=== PATIENT | male | born 1960 | race Caucasian/White ===

== ENCOUNTER 2019-03-09 09:43 | Day surgery (SDC) | payer OTHER ==
[~2019-03-09] VITALS: Ht 185.4 cm; Wt 163.6 kg
[~2019-03-09 09:43] MED LIST: ALBU90OI INH; CHLO25B PO; Cymbalta30 MG PO; DOCU100 PO; GLIP10 PO; INSULANPEN SC; Keppra1000 MG PO; Lyrica225 MG PO; METF500 PO; METO25 PO; MIRALAX17 GM PO; OXYC5 PO; Prinivil10 MG PO
--- NOTE | 2019-03-09 10:47 | NUR ---
PATIENT WAS ADMITTED TO DAY SURGERY FOR HIS PROCEDURE. THE PATIENT STATED THAT HE WAS NPO SINCE 1999 ON 03/08
--- NOTE | 2019-03-09 14:45 | NUR ---
ABD BINDER IN PLACE, DID MINOR ADJUSTMENT TO ABD BINDER ONCE PT STOOD UP TO GET DRESSED. DRG C/D/I. PT DRESSED AND READY TO BE DISCHARGED. Discharge instructions reviewed with patient. Patient verbalizes understanding. Copy given to patient to take home. PARENTS AT BEDSIDE TO DISCUSS DISCHARGE WELL. PT TOLERATED CRACKERS AND JUICE AND WATER WELL, TOOK NORCO ORDERED. RX GIVEN TO PATIENT. Discharged via wheelchair to private car for ride home.
--- NOTE | 2019-03-12 14:02 | NUR ---
03/12/19 1402 Thais Steele VERIFICATIONS: EDIT CHART.
[2019-04-04] MEDS ORDERED: Keflex500 MG PO (21:36)
== END 2019-03-09 14:48 | disposition home or self-care (01) ==
LOC: ORSCMMR 09:43 → ORD 11:15 → ORSCMMR 11:15
PROVIDERS: Surgery
PROC: 0WUF0JZ Supplement Abdominal Wall with Synthetic Substitute, Open Approach (ICD-10-PCS; principal; 2019-03-09 12:15)
DX: K42.9 Umbilical hernia without obstruction or gangrene (principal); I10 Essential (primary) hypertension; E11.9 Type 2 diabetes mellitus without complications; G47.33 Obstructive sleep apnea (adult) (pediatric); J44.9 Chronic obstructive pulmonary disease, unspecified; Z87.891 Personal history of nicotine dependence; E66.01 Morbid (severe) obesity due to excess calories; Z68.42 Body mass index [BMI] 45.0-49.9, adult; Z79.899 Other long term (current) drug therapy
CPT/HCPCS: A9270-GY; C1781; J0690; J1885; J2250; J2405; J2704; J2765; J3010; J7120

== ENCOUNTER 2019-08-10 21:13 | Emergency (ER) | payer OTHER ==
[~2019-08-10] VITALS: Ht 185.4 cm; Wt 163.3 kg
[~2019-08-10 21:13] MED LIST changes: +Keflex500 MG PO
[2019-08-10 22:12] LABS: BASOPHILS ABSOLUTE AUTO 0.06 K/mm3 (0.00-0.23); BASOPHILS PERCENT AUTO 1 % (0-2); EOSINOPHILS ABSOLUTE AUTO 0.24 K/mm3 (0.00-0.68); EOSINOPHILS PERCENT AUTO 2 % (0-6); Hematocrit 42.9 % (37.0-53.0); Hemoglobin 13.6 g/dL (13.5-17.5); IMMATURE GRAN ABSOLUTE AUTO 0.28 K/mm3 (0.00-0.10); IMMATURE GRAN PERCENT AUTO 2 % (0-1); LYMPHOCYTES ABSOLUTE AUTO 3.41 K/mm3 (0.84-5.20); LYMPHOCYTES PERCENT AUTO 27 % (21-46); MONOCYTES ABSOLUTE AUTO 0.68 K/mm3 (0.16-1.47); MONOCYTES PERCENT AUTO 5 % (4-13); Mean Corpuscular HGB 27.3 pg (26.0-34.0); Mean Corpuscular HGB Conc 31.7 g/dL (31.5-36.5); Mean Corpuscular Volume 86 fL (80-100); NEUTROPHILS ABSOLUTE AUTO 8.02 K/mm3 (1.96-9.15); NEUTROPHILS PERCENT AUTO 63 % (41-73); Platelet Count 274 K/mm3 (150-400); RDW Coefficient Variation 13.5 % (11.7-14.2); RDW Standard Deviation 42.4 fL (35.1-46.3); Red Blood Cell Count 4.98 M/mm3 (4.30-5.90); White Blood Cell Count 12.69 K/mm3 (4.00-11.30)
[2019-08-10 22:30] LABS: Alanine Aminotransfer (ALT/SGP 31 U/L (12-78); Albumin, Blood 3.6 g/dL (3.4-5.0); Albumin/Globulin Ratio 0.9 (0.8-1.8); Alk Phos 75 U/L (50-136); Anion Gap 11 mmol/L (6-16); Aspartate Aminotrans (AST/SGOT 21 U/L (12-37); Bilirubin, Total 0.2 mg/dL (0.1-1.0); Blood Urea Nitrogen 17 mg/dL (8-24); Bun/Creatinine Ratio 29.8 (12.0-20.0); CO2, Blood 29 mmol/L (21-32); Calcium, Blood 9.3 mg/dL (8.5-10.1); Chloride, Blood 99 mmol/L (98-108); Creatinine, Blood 0.57 mg/dL (0.60-1.20); Globulin, Blood 4.2 g/dL (2.2-4.0); Glomerular Filtration Rate >60 (60-); Glucose, Blood 239 mg/dL (70-99); Potassium, Blood 3.4 mmol/L (3.5-5.5); Sodium, Blood 139 mmol/L (136-145); Total Protein, Blood 7.8 g/dL (6.4-8.2); Troponin I <0.015 ng/mL (0.000-0.040)
== END 2019-08-11 01:03 | disposition home or self-care (01) ==
LOC: ER 21:13
PROVIDERS: Physician Assistant
DX: R53.1 Weakness (principal); R07.2 Precordial pain; Z88.8 Allergy status to other drugs, medicaments and biological substances; Z88.1 Allergy status to other antibiotic agents; Z79.899 Other long term (current) drug therapy; Z79.4 Long term (current) use of insulin; I10 Essential (primary) hypertension; E11.9 Type 2 diabetes mellitus without complications; Z87.891 Personal history of nicotine dependence
CPT/HCPCS: 71046; 80053; 83880; 84484; 85025; 85379; 93005; 93010; 96360; 96361; 99284-25; J7030

== ENCOUNTER 2020-01-28 12:10 | Emergency (ER) | payer OTHER ==
[~2020-01-28] VITALS: Ht 172.7 cm; Wt 167.8 kg
[~2020-01-28 12:10] MED LIST changes: +BASAGLAR K100 UNIT/1 SC; -INSULANPEN SC; -Keppra1000 MG PO; +LEVE500 PO
[2020-01-28] MEDS ORDERED: BACITO TOP (12:42)
[2020-01-28] MEDS ORDERED: BUDE.25 INH (12:43)
[2020-01-28] MEDS ORDERED: KETO15TC TOP (12:44)
[2020-01-28] MEDS ORDERED: TOBRADEX ST EYE5 M1 OP (12:44)
[2020-01-28] MEDS ORDERED: LEVE500 (12:45)
[2020-01-28 14:57] LABS: BASOPHILS ABSOLUTE AUTO 0.07 K/mm3 (0.00-0.23); BASOPHILS PERCENT AUTO 1 % (0-2); EOSINOPHILS ABSOLUTE AUTO 0.34 K/mm3 (0.00-0.68); EOSINOPHILS PERCENT AUTO 4 % (0-6); Hemoglobin 12.4 g/dL (13.5-17.5); IMMATURE GRAN ABSOLUTE AUTO 0.29 K/mm3 (0.00-0.10); IMMATURE GRAN PERCENT AUTO 3 % (0-1); LYMPHOCYTES ABSOLUTE AUTO 2.66 K/mm3 (0.84-5.20); LYMPHOCYTES PERCENT AUTO 29 % (21-46); MONOCYTES ABSOLUTE AUTO 0.45 K/mm3 (0.16-1.47); MONOCYTES PERCENT AUTO 5 % (4-13); Mean Corpuscular HGB 26.8 pg (26.0-34.0); Mean Corpuscular HGB Conc 30.2 g/dL (31.5-36.5); Mean Corpuscular Volume 89 fL (80-100); Mean Platelet Volume 10.6 fL (9.1-12.4); NEUTROPHILS ABSOLUTE AUTO 5.45 K/mm3 (1.96-9.15); NEUTROPHILS PERCENT AUTO 59 % (41-73); Platelet Count 256 K/mm3 (150-400); RDW Coefficient Variation 13.9 % (11.7-14.2); Red Blood Cell Count 4.63 M/mm3 (4.30-5.90); White Blood Cell Count 9.26 K/mm3 (4.00-11.30)
[2020-01-28 15:09] LABS: Alanine Aminotransfer (ALT/SGP 33 U/L (12-78); Albumin, Blood 3.4 g/dL (3.4-5.0); Albumin/Globulin Ratio 0.9 (0.8-1.8); Alk Phos 67 U/L (50-136); Anion Gap 5 mmol/L (6-16); Aspartate Aminotrans (AST/SGOT 19 U/L (12-37); Bilirubin, Total 0.2 mg/dL (0.1-1.0); Blood Urea Nitrogen 18 mg/dL (8-24); Bun/Creatinine Ratio 35.9 (12.0-20.0); CO2, Blood 31 mmol/L (21-32); Calcium, Blood 8.9 mg/dL (8.5-10.1); Chloride, Blood 100 mmol/L (98-108); Globulin, Blood 3.7 g/dL (2.2-4.0); Glomerular Filtration Rate >60 (60-); Glucose, Blood 402 mg/dL (70-99); Potassium, Blood 3.5 mmol/L (3.5-5.5); Sodium, Blood 136 mmol/L (136-145); Total Protein, Blood 7.1 g/dL (6.4-8.2); Troponin I <0.015 ng/mL (0.000-0.040)
[2020-01-28 15:50] LABS: Base Excess Venous 6.9 mmol/L; Bicarbonate Venous 28.8 mmol/L (24.0-30.0); PCO2 Venous 60.9 mmHg (38-42); PO2 Venous 52.1 mmHg (38-42); pH Blood Venous 7.34 (7.34-7.37)
[2020-01-28] MEDS ORDERED: Prednisone20 MG PO (17:51)
== END 2020-01-28 18:00 | disposition home or self-care (01) ==
LOC: ER 12:10
PROVIDERS: Emergency Medicine
DX: R06.89 Other abnormalities of breathing (principal); R51 Headache; M54.2 Cervicalgia; E11.65 Type 2 diabetes mellitus with hyperglycemia; Z88.8 Allergy status to other drugs, medicaments and biological substances; Z88.1 Allergy status to other antibiotic agents; Z79.899 Other long term (current) drug therapy; Z79.4 Long term (current) use of insulin; I10 Essential (primary) hypertension; Z87.891 Personal history of nicotine dependence
CPT/HCPCS: 70496; 70498; 71045; 80053; 82010; 82803; 82947; 83880; 84484; 85025; 93005; 93010; 94640; 96360-59; 99284-25; J7030; J7512; Q9967

== ENCOUNTER 2020-02-10 18:14 | Inpatient (IN) | payer OTHER ==
[~2020-02-10] VITALS: Ht 185.4 cm; Wt 166.4 kg
[~2020-02-10 18:14] MED LIST changes: +BACITO TOP; +BUDE.25 INH; +KETO15TC TOP; +LEVE500; +Prednisone20 MG PO; +TOBRADEX ST EYE5 M1 OP
[2020-02-10 18:28] LABS: PCO2 Arterial 42.4 mmHg (35-45); PO2 Arterial 50.9 mmHg (80-100); pH Blood Arterial 7.45 (7.35-7.45)
[2020-02-10 18:39] LABS: BASOPHILS ABSOLUTE AUTO 0.07 K/mm3 (0.00-0.23); BASOPHILS PERCENT AUTO 0 % (0-2); EOSINOPHILS ABSOLUTE AUTO 0.19 K/mm3 (0.00-0.68); EOSINOPHILS PERCENT AUTO 1 % (0-6); Hematocrit 45.9 % (37.0-53.0); Hemoglobin 14.3 g/dL (13.5-17.5); IMMATURE GRAN ABSOLUTE AUTO 0.36 K/mm3 (0.00-0.10); IMMATURE GRAN PERCENT AUTO 2 % (0-1); LYMPHOCYTES ABSOLUTE AUTO 1.81 K/mm3 (0.84-5.20); LYMPHOCYTES PERCENT AUTO 8 % (21-46); MONOCYTES ABSOLUTE AUTO 0.75 K/mm3 (0.16-1.47); MONOCYTES PERCENT AUTO 3 % (4-13); Mean Corpuscular HGB 26.9 pg (26.0-34.0); Mean Corpuscular HGB Conc 31.2 g/dL (31.5-36.5); Mean Corpuscular Volume 86 fL (80-100); Mean Platelet Volume 10.1 fL (9.1-12.4); NEUTROPHILS ABSOLUTE AUTO 18.56 K/mm3 (1.96-9.15); NEUTROPHILS PERCENT AUTO 85 % (41-73); Platelet Count 271 K/mm3 (150-400); RDW Coefficient Variation 14.1 % (11.7-14.2); RDW Standard Deviation 44.5 fL (35.1-46.3); Red Blood Cell Count 5.32 M/mm3 (4.30-5.90); White Blood Cell Count 21.74 K/mm3 (4.00-11.30)
[2020-02-10 18:57] LABS: Alanine Aminotransfer (ALT/SGP 40 U/L (12-78); Albumin, Blood 3.9 g/dL (3.4-5.0); Albumin/Globulin Ratio 0.8 (0.8-1.8); Alk Phos 82 U/L (50-136); Anion Gap 9 mmol/L (6-16); Aspartate Aminotrans (AST/SGOT 22 U/L (12-37); Bilirubin, Total 0.5 mg/dL (0.1-1.0); Blood Urea Nitrogen 15 mg/dL (8-24); Bun/Creatinine Ratio 23.3 (12.0-20.0); CO2, Blood 30 mmol/L (21-32); Calcium, Blood 9.6 mg/dL (8.5-10.1); Chloride, Blood 95 mmol/L (98-108); Creatinine, Blood 0.65 mg/dL (0.60-1.20); Globulin, Blood 4.7 g/dL (2.2-4.0); Glomerular Filtration Rate >60 (60-); Glucose, Blood 191 mg/dL (70-99); Potassium, Blood 3.7 mmol/L (3.5-5.5); Sodium, Blood 134 mmol/L (136-145); Total Protein, Blood 8.6 g/dL (6.4-8.2)
[2020-02-10] MEDS ORDERED: NOVOLOG100 UNIT/2 SC (21:59)
--- NOTE | 2020-02-10 22:00 | NUR ---
REPORT FROM SAMSON HERRERA IN ER. PT ARRIVES TO ICU ROOM 11 AT 2136. PT ALERT AND ORIENTED. PT MOVED TO ICU BED WITH THE ASSISTANCE OF 4 PEOPLE. RESP AT BEDSIDE TO SET UP AIRVO O2. PT PLACED ON COMPUTER SYSTEMS ADMINISTRATOR, SHOWING ST RATE 110'S. BP STABLE. PT HAS 20G TO LEFT FA AND 20G TO LEFT UPPER ARM. BOTH DRESSINGS CHANGED. SITES WNL. PT HAS PATENT TEMP FAIRCHILD DRAINING YELLOW URINE, TEMP 101.6. PT DENIES PAIN. C/O SOB STILL. PT TACHYPNEAIC AND ANXIOUS. PT ANWERS ADMIT QUESTIONS EASILY. SKIN INTACT BUT CLAMMY AND MOIST DUE TO DIAPHORESIS. PULSES PRESENT AND EQUAL X4. PUPILS 4MM AND BRISK. INITIAL AIRVO SETTINGS 60L @ 50% FI02. SATS >92%. PT TOLERATING CANNULA WITH SOME ANXIETY. PT C/O CRAMPS TO LEGS R>L. SEND OUT COVID SWAB COLLECTED AT THIS TIME. PT ORIENTED TO ROOM, CALL LIGHT IN REACH. SEE FULL ASSESSMENT
[2020-02-11 04:03] LABS: BASOPHILS ABSOLUTE AUTO 0.05 K/mm3 (0.00-0.23); BASOPHILS PERCENT AUTO 0 % (0-2); EOSINOPHILS ABSOLUTE AUTO 0.01 K/mm3 (0.00-0.68); EOSINOPHILS PERCENT AUTO 0 % (0-6); Hematocrit 41.6 % (37.0-53.0); IMMATURE GRAN PERCENT AUTO 2 % (0-1); LYMPHOCYTES ABSOLUTE AUTO 0.41 K/mm3 (0.84-5.20); LYMPHOCYTES PERCENT AUTO 2 % (21-46); MONOCYTES ABSOLUTE AUTO 0.25 K/mm3 (0.16-1.47); MONOCYTES PERCENT AUTO 1 % (4-13); Mean Corpuscular HGB Conc 31.3 g/dL (31.5-36.5); Mean Corpuscular Volume 87 fL (80-100); Mean Platelet Volume 9.9 fL (9.1-12.4); NEUTROPHILS ABSOLUTE AUTO 20.93 K/mm3 (1.96-9.15); NEUTROPHILS PERCENT AUTO 95 % (41-73); Platelet Count 247 K/mm3 (150-400); RDW Coefficient Variation 14.3 % (11.7-14.2); RDW Standard Deviation 45.5 fL (35.1-46.3); Red Blood Cell Count 4.81 M/mm3 (4.30-5.90); White Blood Cell Count 22.15 K/mm3 (4.00-11.30)
[2020-02-11 04:20] LABS: Anion Gap 6 mmol/L (6-16); Blood Urea Nitrogen 16 mg/dL (8-24); Bun/Creatinine Ratio 22.5 (12.0-20.0); CO2, Blood 29 mmol/L (21-32); Calcium, Blood 8.7 mg/dL (8.5-10.1); Chloride, Blood 100 mmol/L (98-108); Creatinine, Blood 0.71 mg/dL (0.60-1.20); Glomerular Filtration Rate >60 (60-); Glucose, Blood 279 mg/dL (70-99); Potassium, Blood 4.1 mmol/L (3.5-5.5); Sodium, Blood 135 mmol/L (136-145)
--- NOTE | 2020-02-11 06:31 | NUR ---
SHIFT SUMMARY PT REMAINS ALERT AND ORIENTED THROUGH OUT SHIFT. PT SATS >90% ON AIRVO 50L/50%. TOLERATING CANNULA WELL. PT HAS 2OG TO LEFT UPPER ARM, DRESSING C/D/I, ALSO HAS 20G TO LEFT FA, DRESSING C/D/I. PT REQUIRED DOSE OF IV METOPROLOL FOR HYPERTENSION, BP STABLE SINCE. HR LOW 100'S, ST. PT FEBRILE OFF/ON, NEEDED TYLENOL FOR TEMP OF 102. PT HAS TEMP FAIRCHILD DRAINING YELLOW URINE. PULSES EQUAL AND STRONG X4. PT TOLERATES PO. CBG HIGH, COVERAGE NEEDED FOR BLOOD SUGAR >200S. NEEDS HOME MEDS READDRESSED, ORDERED DOSE DO NOT MATCH HOME DOSE. PT USES CALL LIGHT APPROPRIATELY. LUNG SOUNDS COARSE AND DIMINISHED. BS ACTIVE. PT REPORTS NO BM SINCE 02/07. NO CHANGES IN SKIN. WILL REPORT TO ONCOMING SHIFT.
--- NOTE | 2020-02-11 08:17 | NUR ---
ASSUMED CARE: REPORT RECEIVED FROM LORENA Jamil RN & JORGE Yancey RN. ASSUMED CARE OF THIS PT AT APPROX 0700. ON ASSESSMENT, THE PT IS RESTING QUIETLY & AWAKENS EASILY TO VERBAL STIMULUS. HE IS A&O, PLEASANT & COOPERATIVE W/ CARE. CURRENTLY AFEBRILE W/ TEMP FAIRCHILD READING 99.0. PT STS HAVING GENERALIZED CHRONIC "ACHES & PAINS" THAT ARE IMPROVED W/ REPOSITIONING. AIRVO IN USE W/ SETTINGS: 50L/MIN & 50% FIO2, PT TOLERATING WELL W/ O2 SATS > 92%. MONITOR SHOWS ST W/ HR 100s, BP STABLE. PT DENIES CP, BUT CONTINUES TO FEEL SOB, ALTHOUGH STS IMPROVED. PT HAS NO GI COMPLAINTS & IS TOLERATING PO INTAKE WELL. TEMP FAIRCHILD PATENT/ DRAINING LIGHT YELLOW URINE. SKIN CONDITION OVERALL INTACT, BUT PT REMAINS SOMEWHAT DIAPHORETIC. WILL CONTINUE TO MONITOR & UPDATE NEEDED.
[2020-02-11 10:01] LABS: PCO2 Arterial 46.2 mmHg (35-45); PO2 Arterial 66.3 mmHg (80-100); pH Blood Arterial 7.41 (7.35-7.45)
--- NOTE | 2020-02-11 12:30 | NUR ---
DR HASSAN: PROVIDER AT BEDSIDE TO EVAL PT. THE CIRCUMSTANCES SURROUNDING SECOND COVID-19 SWAB BEING COMPLETED, UPDATED HER ON THE REASONING FOR THIS. PT HAS HAD C/O CHRONIC GENERALIZED ACHING, REQUEST FOR HIS HOME PAIN MEDS TO BE RESUMED. SHE STS SHE WILL LOOK INTO IT. [facility], HAS INQUIRED ABOUT POSSIBLE NEED FOR GI PROPHYLAXIS R/T IV STEROIDS THAT PT IS RECEIVING. PROVIDER STS THAT SHE WILL ALSO LOOK INTO THIS. NO OTHER CHANGES AT THIS TIME.
--- NOTE | 2020-02-11 17:17 | NUR ---
Per admit trigger, I attempted to meet with Mr. Howell to educate/discuss advanced care planning. Unfortunately, he is a Covid rule-out and I am unable to enter room. Advanced Directive packet given to RN to present to Yomi. I will remain available, and if Yomi comes out of Covid isolation, I will attempt this conversation again.
--- NOTE | 2020-02-11 18:10 | NUR ---
SHIFT SUMMARY: NO ACUTE CHANGES SINCE PRIOR UPDATES. PT REMAINS A&O, PLEASANT & COOPERATIVE. HE HAS RESTED WELL THIS AFTERNOON, STS HE HAS BEEN SLEEPING POORLY AT HOME FOR QUITE SOME TIME. LS REMAIN DIM T/O, PT ON AIRVO W/ SETTINGS UNCHANGED AT 50 L/MIN & 50% FIO2. TOLERATING WELL W/ O2 SATS > 92%. MONITOR SHOWS SR W/ HR 80-90s, BP STABLE. PT HAS NO GI COMPLAINTS & IS TOLERATING PO INTAKE WELL. TEMP FAIRCHILD PATENT/ DRAINING W/ TMAX 100.0 THIS SHIFT, MEDS PER EMAR. SKIN CONDITION OVERALL UNCHANGED, CDI. WILL CONTINUE TO MONITOR & REPORT OFF TO ONCOMING RN.
--- NOTE | 2020-02-11 20:55 | NUR ---
ASSUMED PT CARE REPORT WITH GILBERTO HERRERA AT 1900. ASSUME PT CARE. PT SITTING UP IN BED, CALL LIGHT IN REACH, ALERT AND ORIENTED. PT ON ARIVO 50L/50% TOLERATING CANNULA WELL, SATS >92%. LUNG SOUNDS CLEAR TO UPPER BOJORQUEZ, DIMINISHED TO LOWER. PT REMAINS ON METAL SPRAY OPERATOR, HR 80'S, NSR. BP STABLE. ABD DISTENDED, BS ACTIVE. PT REPORTS PASSING GAS. PT MOVE ALL 4 EXT. C/O CHRONIC JOINT AND BACK PAIN. IV TO LEFT UPPER ARM AND LEFT FA REMAIN INTACT. DRESSING C/D, BOTH FLUSH WELL. COFFEE AND ICE WATER PROVIDED. PT SITTING UP FOR MEDS, TOLERATES PO WITHOUT ISSUE. PATENT TEMP FAIRCHILD DRAINING CLEAR YELLOW URINE. PT AFEBRILE TODAY PER REPORT. SEE FULL SHIFT ASSESSMENT.
[2020-02-11] MEDS ORDERED: BUDE.25 INH (21:18)
[2020-02-11] MEDS ORDERED: NEOBACHC15 TOP (21:18)
[2020-02-11] MEDS ORDERED: Tobramycin-Dexam5 ML BOTHEARS (21:21)
[2020-02-11] MEDS ORDERED: JARDIANCE25 MG PO (21:22)
[2020-02-11] MEDS ORDERED: Fluocinonide15 GM TOP (21:24)
[2020-02-11] MEDS ORDERED: HYDACE10B PO (21:25)
[2020-02-11] MEDS ORDERED: NOVOLOG FL100 UNIT/2 SC (21:27)
[2020-02-11] MEDS ORDERED: NOVOLOG100 UNIT/2 SC (21:29)
[2020-02-11] MEDS ORDERED: LACT PO (21:31)
[2020-02-12 03:45] LABS: BASOPHILS ABSOLUTE AUTO 0.03 K/mm3 (0.00-0.23); BASOPHILS PERCENT AUTO 0 % (0-2); EOSINOPHILS PERCENT AUTO 0 % (0-6); Hemoglobin 12.3 g/dL (13.5-17.5); IMMATURE GRAN ABSOLUTE AUTO 0.46 K/mm3 (0.00-0.10); IMMATURE GRAN PERCENT AUTO 3 % (0-1); LYMPHOCYTES ABSOLUTE AUTO 0.92 K/mm3 (0.84-5.20); LYMPHOCYTES PERCENT AUTO 6 % (21-46); MONOCYTES ABSOLUTE AUTO 0.49 K/mm3 (0.16-1.47); MONOCYTES PERCENT AUTO 3 % (4-13); Mean Corpuscular HGB Conc 30.8 g/dL (31.5-36.5); Mean Corpuscular Volume 88 fL (80-100); Mean Platelet Volume 9.9 fL (9.1-12.4); NEUTROPHILS ABSOLUTE AUTO 13.87 K/mm3 (1.96-9.15); NEUTROPHILS PERCENT AUTO 88 % (41-73); Platelet Count 231 K/mm3 (150-400); RDW Coefficient Variation 14.3 % (11.7-14.2); RDW Standard Deviation 45.9 fL (35.1-46.3); Red Blood Cell Count 4.55 M/mm3 (4.30-5.90); White Blood Cell Count 15.77 K/mm3 (4.00-11.30)
[2020-02-12 04:06] LABS: Albumin, Blood 2.8 g/dL (3.4-5.0); Anion Gap 7 mmol/L (6-16); Blood Urea Nitrogen 19 mg/dL (8-24); CO2, Blood 26 mmol/L (21-32); Calcium, Blood 8.3 mg/dL (8.5-10.1); Chloride, Blood 99 mmol/L (98-108); Creatinine, Blood 0.58 mg/dL (0.60-1.20); Glomerular Filtration Rate >60 (60-); Glucose, Blood 290 mg/dL (70-99); Potassium, Blood 4.1 mmol/L (3.5-5.5); Sodium, Blood 132 mmol/L (136-145)
--- NOTE | 2020-02-12 06:34 | NUR ---
SHIFT SUMMARY PT HAD GOOD SHIFT. ALERT AND ORIENTED. UP ALL NIGHT, PT STATES "I USUALLY AM UP ALL NIGHT, I EAT ALOT OF SNACKS." PT C/O PAIN TO BACK AND TO LEGS. NEEDED PAIN MEDICATION TWICE DURING SHIFT (MEDICATED WITH PERCOCET). PT TOLERATING AIRVO, TOLERATED TITRATION. SATS >90%, SETTINGS 30L/30%. BP WNL, HR 80'S NSR. PATENT TEMP FAIRCHILD DRAINING CLEAR YELLOW URINE. ABD SOFT, NON TENDER, GOOD BOWEL SOUNDS, ARCADIO PO. LUNG SOUNDS CLEAR UPPER AND DIMINISHED TO BASES. IV TO LEFT UPPER ARM INFILTRATED, DRESSING PLACED. PT DECLINED NEW IV. WILL SEE IF POWER GLIDE CAN BE STARTED. PT MOVES ALL EXT. WOULD BENEFIT FROM PT EVAL/CONSULT. WILL REPORT TO ON COMING
--- NOTE | 2020-02-12 07:30 | NUR ---
Received report from Tate HERRERA. Patient awake sitting up in bed and is aleert at baseline. RT just came out and removed AirVO 30 L at 30% and made 4 L Via NC and sats 94%. He MAEW. He has 16F Temp chao in place draining to gravity yellow urine and temp of 98.6. Patient denies anyn other current needs other than water and coffee. He has 20ga IV in LFA dressing intact and site WNL's and is infusing sodium Phos at 125ml/hr. He is on isolation for r/o Covid 19.
--- NOTE | 2020-02-12 09:30 | NUR ---
Patient tolertaed breakfast and am meds well. He was up out of bed and ambulated to bathroom with minimal assist. He remians on 4L O2 via NC and sats 94-96 even with ambulation. He remains up to bathroom.
--- NOTE | 2020-02-12 12:24 | NUR ---
Dr Gage in room with patient. He was able to ambulate back to bed with minimal assist and reposituioned self back in bed. His sats never decreased less than 90%n during transfer. He tolerated lunch well. CBG 344 and covered with 12 units humalog. Sodium Phos done and site flushed and SL'd. No significant changes, remains on 4 L O2 via NC and sats >90%.
--- NOTE | 2020-02-12 15:09 | NUR ---
Patient remains on 4L O2 via NC and sats >90% and puffs and pers lip breathing with exertion. He was upm out of bed so that we could change linen and straighten room. He remains SL'd. Patient put out another 1900 yellow urine.
--- NOTE | 2020-02-12 18:39 | NUR ---
Patient continues to puff and purse lip breathing and states he is hot but feel cool in room. His temp 98.8 from temp chao that has 3800ml, yellow urine output.. He remains on 4L O2 via NC and sats >95%. JHlisa is currently trying to rest He states that sudefed worked a little and wants second dose when available. No other current needs.
--- NOTE | 2020-02-12 20:00 | NUR ---
ASSUMED PT CARE REPORT FROM RAVI RN AT 1905, ASSUMED PT CARE. PT ALERT AND ORIENTED. DENIES CP. C/O SOB MORE TODAY, PT NOW ON 4L O2 PER CANNULA. SATS >90%. TOLERATING WELL. PT REPORTS HAVING A GOOD DAY. 20G TO LEFT FA, DRESSING C/D/I. PT MOVES ALL 4 EXT FREELY. PT MED STATUS, REMOVED TELE (DUE TO DC ORDER). BP STABLE. PATENT FAIRCHILD DRAINING CLEAR YELLOW URINE. SEE FULL SHIFT ASSESSMENT.
[2020-02-13 04:00] LABS: BASOPHILS ABSOLUTE AUTO 0.03 K/mm3 (0.00-0.23); BASOPHILS PERCENT AUTO 0 % (0-2); EOSINOPHILS PERCENT AUTO 0 % (0-6); Hematocrit 40.7 % (37.0-53.0); Hemoglobin 12.6 g/dL (13.5-17.5); IMMATURE GRAN PERCENT AUTO 4 % (0-1); LYMPHOCYTES ABSOLUTE AUTO 0.97 K/mm3 (0.84-5.20); LYMPHOCYTES PERCENT AUTO 6 % (21-46); MONOCYTES PERCENT AUTO 4 % (4-13); Mean Corpuscular HGB 26.9 pg (26.0-34.0); Mean Corpuscular Volume 87 fL (80-100); NEUTROPHILS PERCENT AUTO 86 % (41-73); Platelet Count 235 K/mm3 (150-400); RDW Coefficient Variation 14.3 % (11.7-14.2); RDW Standard Deviation 45.5 fL (35.1-46.3); Red Blood Cell Count 4.69 M/mm3 (4.30-5.90)
[2020-02-13 04:20] LABS: Albumin, Blood 3.1 g/dL (3.4-5.0); Anion Gap 3 mmol/L (6-16); Blood Urea Nitrogen 21 mg/dL (8-24); Bun/Creatinine Ratio 33.1 (12.0-20.0); CO2, Blood 33 mmol/L (21-32); Calcium, Blood 8.8 mg/dL (8.5-10.1); Chloride, Blood 98 mmol/L (98-108); Creatinine, Blood 0.63 mg/dL (0.60-1.20); Glomerular Filtration Rate >60 (60-); Glucose, Blood 298 mg/dL (70-99); Phosphorus, Blood 2.7 mg/dL (2.5-4.9); Potassium, Blood 4.2 mmol/L (3.5-5.5); Sodium, Blood 134 mmol/L (136-145)
--- NOTE | 2020-02-13 05:39 | NUR ---
SHIFT SUMMARY PT HAD GREAT EVENING. SLEPT MORE THAN PREVIOUS SHIFTS. REMAINED ALERT AND ORIENTED THROUGHOUT SHIFT. PT TOLERATED O2 AT 4L PER NC WITH NO DESATS SATS >92% ALL NIGHT. SOB AT TIMES. REPORTS NEB TREATMENTS REALLY HELPED TONIGHT. PT SKIN WNL. LUNG SOUNDS CLEAR TO UPPER LOBES AND DIMINISHED TO LOWER BASES. OCCASIONAL COUGH. PT ABD SOFT, NON TENDER, BM YEST DURING DAY SHIFT. PATENT FAIRCHILD DRAINING CLEAR YELLOW URINE. PT MOVES ALL 4 EXT INDEPENDENTLY. GOOD APPETITE. BP STABLE. REQUIRED ONE DOSE OF PEROCET AND MOTRIN FOR C/O PAIN. WILL REPORT TO ONCOMING SHIFT.
[2020-02-13] MEDS ORDERED: DOCU100 PO (16:10)
[2020-02-13] MEDS ORDERED: LACT PO (16:14)
[2020-02-13] MEDS ORDERED: AZIT500 PO (16:57)
[2020-02-13] MEDS ORDERED: CEFU500T30 PO (16:59)
[2020-02-13] MEDS ORDERED: GUAI600T33 PO (17:00)
[2020-02-13] MEDS ORDERED: IPRAT-ALBUT 0.5-3 ML INH (17:04)
[2020-02-13] MEDS ORDERED: Prednisone10 MG PO (17:08)
[2020-02-13] MEDS ORDERED: HUMALOG KW100 UNIT/1 (17:40)
--- NOTE | 2020-02-13 18:42 | NUR ---
PT DISCHARGED FROM ICU AT 183. PT LEFT ON 2 L NC, 93% SPO2. NO MAJOR EVENTS TODAY, PT STATED FEELING OVERALL BETTER TODAY.
== END 2020-02-13 18:45 | disposition home or self-care (01) | DRG 871 ==
LOC: ER 18:14 → ICUW 20:30
PROVIDERS: Emergency Medicine; Internal Medicine; ADMIT Hospitalist
DX: A41.9 Sepsis, unspecified organism (principal); J18.9 Pneumonia, unspecified organism; J96.21 Acute and chronic respiratory failure with hypoxia; J44.1 Chronic obstructive pulmonary disease with (acute) exacerbation; J44.0 Chronic obstructive pulmonary disease with (acute) lower respiratory infection; E87.1 Hypo-osmolality and hyponatremia; G40.209 Localization-related (focal) (partial) symptomatic epilepsy and epileptic syndromes with complex partial seizures, not intractable, without status epilepticus; Z68.42 Body mass index [BMI] 45.0-49.9, adult; Z20.828 Contact with and (suspected) exposure to other viral communicable diseases; R65.20 Severe sepsis without septic shock; I10 Essential (primary) hypertension; E11.40 Type 2 diabetes mellitus with diabetic neuropathy, unspecified; E66.01 Morbid (severe) obesity due to excess calories; G47.33 Obstructive sleep apnea (adult) (pediatric); G89.4 Chronic pain syndrome; K59.00 Constipation, unspecified; Z91.14 Patient's other noncompliance with medication regimen; Z87.891 Personal history of nicotine dependence; Z79.4 Long term (current) use of insulin
CPT/HCPCS: 36415; 36600; 51702; 71045; 80048; 80053; 80069; 82803; 82947; 83036; 83605; 83880; 84145; 85025; 87040; 93005; 93010; 94640; 94644; 94761; 96365-59; 96368; 96375-59; 97161; 97165; 97530; 99285-25; A9270; A9270-GY; C9113; J0456; J0696; J1100; J1650; J1815; J2060; J2405; J2930; J7030; J7050; J7060; U0002; U0003

== ENCOUNTER 2020-04-04 17:54 | Emergency (ER) | payer OTHER ==
[~2020-04-04] VITALS: Ht 185.4 cm; Wt 170.1 kg
[~2020-04-04 17:54] MED LIST changes: +AZIT500 PO; +CEFU500T30 PO; +Fluocinonide15 GM TOP; +GUAI600T33 PO; +HUMALOG KW100 UNIT/1; +HYDACE10B PO; +IPRAT-ALBUT 0.5-3 ML INH; +JARDIANCE25 MG PO; +LACT PO; +NEOBACHC15 TOP; +NOVOLOG FL100 UNIT/2 SC; +NOVOLOG100 UNIT/2 SC; +Prednisone10 MG PO; +Tobramycin-Dexam5 ML BOTHEARS
[2020-04-04 18:23] LABS: BASOPHILS ABSOLUTE AUTO 0.06 K/mm3 (0.00-0.23); BASOPHILS PERCENT AUTO 1 % (0-2); EOSINOPHILS ABSOLUTE AUTO 0.08 K/mm3 (0.00-0.68); EOSINOPHILS PERCENT AUTO 1 % (0-6); Hematocrit 42.5 % (37.0-53.0); Hemoglobin 13.4 g/dL (13.5-17.5); IMMATURE GRAN PERCENT AUTO 3 % (0-1); LYMPHOCYTES ABSOLUTE AUTO 2.07 K/mm3 (0.84-5.20); LYMPHOCYTES PERCENT AUTO 17 % (21-46); MONOCYTES ABSOLUTE AUTO 0.45 K/mm3 (0.16-1.47); MONOCYTES PERCENT AUTO 4 % (4-13); Mean Corpuscular HGB 26.8 pg (26.0-34.0); Mean Corpuscular HGB Conc 31.5 g/dL (31.5-36.5); Mean Corpuscular Volume 85 fL (80-100); Mean Platelet Volume 9.6 fL (9.1-12.4); NEUTROPHILS ABSOLUTE AUTO 9.15 K/mm3 (1.96-9.15); NEUTROPHILS PERCENT AUTO 76 % (41-73); Platelet Count 269 K/mm3 (150-400); RDW Coefficient Variation 14.6 % (11.7-14.2); RDW Standard Deviation 45.1 fL (35.1-46.3); White Blood Cell Count 12.11 K/mm3 (4.00-11.30)
[2020-04-04 18:38] LABS: International Normalized Ratio 1.01; Prothrombin Time Results 10.8 Sec (9.7-11.5)
[2020-04-04 18:41] LABS: Alanine Aminotransfer (ALT/SGP 27 U/L (12-78); Albumin, Blood 3.6 g/dL (3.4-5.0); Albumin/Globulin Ratio 0.8 (0.8-1.8); Alk Phos 73 U/L (50-136); Anion Gap 9 mmol/L (6-16); Aspartate Aminotrans (AST/SGOT 15 U/L (12-37); Bilirubin, Total 0.4 mg/dL (0.1-1.0); Blood Urea Nitrogen 16 mg/dL (8-24); Bun/Creatinine Ratio 27.5 (12.0-20.0); CO2, Blood 29 mmol/L (21-32); Calcium, Blood 9.7 mg/dL (8.5-10.1); Chloride, Blood 101 mmol/L (98-108); Creatinine, Blood 0.58 mg/dL (0.60-1.20); Ethanol (Alcohol), Blood, Med <3 mg/dL; Globulin, Blood 4.6 g/dL (2.2-4.0); Glomerular Filtration Rate >60 (60-); Glucose, Blood 265 mg/dL (70-99); Potassium, Blood 3.6 mmol/L (3.5-5.5); Sodium, Blood 139 mmol/L (136-145); Total Protein, Blood 8.2 g/dL (6.4-8.2)
[2020-04-04 20:01] LABS: Source, Urine Voided
[2020-04-04 20:09] LABS: Bilirubin, Urine Neg (Neg); Blood, Urine Neg (Neg); Glucose Qualitative, Urine 2+ (Neg); Ketones, Urine 1+ (Neg); Leukocyte Esterase, Urine Neg (Neg); Nitrite, Urine Neg (Neg); Protein, Urine 3+ (Neg); Urobilinogen, Urine NORM (Normal); pH, Urine 6.5 (5.0-8.0)
[2020-04-04 20:10] LABS: Appearance, Urine Clear (Clear); Color, Urine Yellow (P-Yellow)
[2020-04-04 20:25] LABS: Bacteria Rare /hpf; Mucus Light (0-Heavy); Red Blood Cells, Urine 0-2 /hpf (0-2); Squamous Epithelial Cells Few /hpf (Few); White Blood Cells, Urine 0-2 /hpf (0-5)
[2020-04-04 20:29] LABS: U Amphetamine Screen Not Detected; U Barbituate Screen Not Detected; U Benzodiazapine Screen Not Detected; U Buprenorphine Screen Not Detected; U Cannabinoids Screen Not Detected; U Cocaine Screen Not Detected; U Methadone Screen Not Detected; U Methamphetamine Screen Not Detected; U Opiates Screen DETECTED; U Oxycodone Screen Not Detected; U Phencyclidine Screen Not Detected; U Propoxyphene Screen Not Detected
== END 2020-04-04 22:16 | disposition home or self-care (01) ==
LOC: ER 17:54
PROVIDERS: Emergency Medicine
DX: G40.909 Epilepsy, unspecified, not intractable, without status epilepticus (principal); I10 Essential (primary) hypertension; E11.9 Type 2 diabetes mellitus without complications; Z88.8 Allergy status to other drugs, medicaments and biological substances; Z79.4 Long term (current) use of insulin; Z79.51 Long term (current) use of inhaled steroids; Z79.899 Other long term (current) drug therapy; Z87.891 Personal history of nicotine dependence
CPT/HCPCS: 36415; 80053; 81001; 82947; 85025; 85610; 93005; 93010; 96374; 99285-25; G0480; J1953

== ENCOUNTER 2020-07-07 16:47 | Observation (INO) | payer OTHER ==
[~2020-07-07] VITALS: Ht 185.4 cm; Wt 162.4 kg
[~2020-07-07 16:47] MED LIST changes: -ALBU90OI INH; -Cymbalta30 MG PO; -HUMALOG KW100 UNIT/1; -LEVE500 PO; -Lyrica225 MG PO; -METF500 PO; -METO25 PO; -MIRALAX17 GM PO; -Prinivil10 MG PO
[2020-07-07 17:49] LABS: BASOPHILS ABSOLUTE AUTO 0.05 K/mm3 (0.00-0.23); BASOPHILS PERCENT AUTO 1 % (0-2); EOSINOPHILS ABSOLUTE AUTO 0.31 K/mm3 (0.00-0.68); EOSINOPHILS PERCENT AUTO 3 % (0-6); Hemoglobin 12.7 g/dL (13.5-17.5); IMMATURE GRAN ABSOLUTE AUTO 0.33 K/mm3 (0.00-0.10); IMMATURE GRAN PERCENT AUTO 4 % (0-1); LYMPHOCYTES ABSOLUTE AUTO 2.13 K/mm3 (0.84-5.20); LYMPHOCYTES PERCENT AUTO 22 % (21-46); MONOCYTES ABSOLUTE AUTO 0.58 K/mm3 (0.16-1.47); MONOCYTES PERCENT AUTO 6 % (4-13); Mean Corpuscular Volume 87 fL (80-100); Mean Platelet Volume 9.6 fL (9.1-12.4); NEUTROPHILS ABSOLUTE AUTO 6.11 K/mm3 (1.96-9.15); NEUTROPHILS PERCENT AUTO 64 % (41-73); Platelet Count 266 K/mm3 (150-400); RDW Coefficient Variation 14.9 % (11.7-14.2); RDW Standard Deviation 47.5 fL (35.1-46.3); White Blood Cell Count 9.51 K/mm3 (4.00-11.30)
[2020-07-07 18:10] LABS: Alanine Aminotransfer (ALT/SGP 38 U/L (12-78); Albumin, Blood 3.6 g/dL (3.4-5.0); Albumin/Globulin Ratio 0.9 (0.8-1.8); Alk Phos 74 U/L (50-136); Anion Gap 2 mmol/L (6-16); Aspartate Aminotrans (AST/SGOT 17 U/L (12-37); Bilirubin, Total 0.3 mg/dL (0.1-1.0); Blood Urea Nitrogen 11 mg/dL (8-24); Bun/Creatinine Ratio 19.8 (12.0-20.0); CO2, Blood 35 mmol/L (21-32); Calcium, Blood 9.4 mg/dL (8.5-10.1); Chloride, Blood 101 mmol/L (98-108); Creatinine, Blood 0.56 mg/dL (0.60-1.20); Glomerular Filtration Rate >60 (60-); Glucose, Blood 189 mg/dL (70-99); Potassium, Blood 3.5 mmol/L (3.5-5.5); Sodium, Blood 138 mmol/L (136-145); Total Protein, Blood 7.6 g/dL (6.4-8.2); Troponin I <0.015 ng/mL (0.000-0.040)
[2020-07-07 18:21] LABS: Source, Urine Voided
[2020-07-07 18:24] LABS: Appearance, Urine Clear (Clear); Bilirubin, Urine Neg (Neg); Blood, Urine Neg (Neg); Color, Urine Yellow (P-Yellow); Glucose Qualitative, Urine Neg (Neg); Ketones, Urine Neg (Neg); Leukocyte Esterase, Urine 1+ (Neg); Nitrite, Urine Neg (Neg); Protein, Urine 1+ (Neg); Urobilinogen, Urine 2+ (Normal)
[2020-07-07 18:34] LABS: Red Blood Cells, Urine 0-2 /hpf (0-2)
[2020-07-07 18:35] LABS: Squamous Epithelial Cells Rare /hpf (Few)
[2020-07-07 18:40] LABS: Oval Fat Bodies Rare /lpf
[2020-07-07 18:41] LABS: Bacteria Not Seen /hpf
[2020-07-07 19:20] LABS: Influenza A, PCR Negative (NEGATIVE); Influenza B, PCR Negative (NEGATIVE); Resp Syncytial Virus, PCR Negative (NEGATIVE); SARS-Cov-2 (COVID-19) PCR, MMC Negative (NEGATIVE)
[2020-07-07] MEDS ORDERED: SYMBICORT 80-10.2 GM (22:17)
[2020-07-07 22:33] LABS: Base Excess Venous 8.5 mmol/L; Bicarbonate Venous 30.9 mmol/L (24.0-30.0); PCO2 Venous 52.6 mmHg (38-42); PO2 Venous 96.6 mmHg (38-42); pH Blood Venous 7.41 (7.34-7.37)
--- NOTE | 2020-07-08 04:47 | NUR ---
SHIFT SUMMARY RECIEVED REPORT FROM AUREA HERRERA, ED @ 2114. ARRIVED TO MEDICAL FLOOR @ 2132 VIA WHEELCHAIR; MINIMAL ASSISTANCE NEEDED WITH TRANSFER. ORIENTED TO ROOM AND CALL SYSTEM; HOWEVER HAS NOT UTILIZED CALL LIGHT. A/O, ABLE TO MAKE NEEDS KNOWN. COOPERATIVE WITH CARE. ANSWERS QUESTIONS APPROPRIATELY. UP WITH 1P ASSIST TO BATHROOM; BECOMES DYSPENIC WITH EXERTION, SLIGHTLY UNSTEADY ON FEET WELL. BASELINE WEARS 3L VIA NC @ HS. TELE RUNNING SR @ 83 PER PCU SOUND ASSISTANT. APPEARED TO REST MUCH OF NIGHT SINCE ARRIVAL. STATES ITCHY AND DOES HAVE SLIGHT RASH TO TRUNK. NO OTHER ACUTE NEEDS OVERNIGHT. BED REMAINS IN LOWEST POSITION; ALARM ON. CALL LIGHT AND BELONGINGS WITHIN REACH. REPORT TO ALESHA HERRERA.
[2020-07-08 10:33] LABS: U Amphetamine Screen Not Detected; U Barbituate Screen Not Detected; U Benzodiazapine Screen Not Detected; U Buprenorphine Screen Not Detected; U Cannabinoids Screen Not Detected; U Cocaine Screen Not Detected; U Methadone Screen Not Detected; U Methamphetamine Screen Not Detected; U Opiates Screen Not Detected; U Oxycodone Screen Not Detected; U Phencyclidine Screen Not Detected; U Propoxyphene Screen Not Detected
--- NOTE | 2020-07-08 12:58 | NUR ---
DISCHARGE DISCHARGE INSTRUCTIONS, FOLLOW UP APPOINTMENT AND MEDICATION LIST REVIEWED WITH PT IN HIS ROOM AND WITH HIS MOTHER VIA TELEPHONE. QUESTONS/CONCERNS ANSWERED. BOTH VERBALLY INDICATED UNDERSTANDING OF ALL INSTRUCTIONS RECEIVED. TELE MONITOR REMOVED AND RETURNED TO PCU. ESCORTED OUT VIA W/C BY VOLUNTEER.
== END 2020-07-08 13:03 | disposition home or self-care (01) ==
LOC: ER 16:47 → MEDS 16:48
PROVIDERS: Emergency Medicine; ADMIT Internal Medicine
DX: G93.41 Metabolic encephalopathy (principal); I10 Essential (primary) hypertension; E11.42 Type 2 diabetes mellitus with diabetic polyneuropathy; R62.50 Unspecified lack of expected normal physiological development in childhood; E66.01 Morbid (severe) obesity due to excess calories; Z68.43 Body mass index [BMI] 50.0-59.9, adult; E11.40 Type 2 diabetes mellitus with diabetic neuropathy, unspecified; J44.9 Chronic obstructive pulmonary disease, unspecified; Z20.822 Contact with and (suspected) exposure to COVID-19; G47.33 Obstructive sleep apnea (adult) (pediatric); G40.209 Localization-related (focal) (partial) symptomatic epilepsy and epileptic syndromes with complex partial seizures, not intractable, without status epilepticus; N39.0 Urinary tract infection, site not specified; Z88.8 Allergy status to other drugs, medicaments and biological substances; Z88.1 Allergy status to other antibiotic agents; Z79.4 Long term (current) use of insulin; Z87.891 Personal history of nicotine dependence; Z91.19 Patient's noncompliance with other medical treatment and regimen
CPT/HCPCS: 0241U; 36415; 70450; 71045; 80053; 81001; 82140; 82803; 82947; 83605; 83690; 84146; 84484; 85025; 87086; 93005; 93010; 96365; 96366; 96372; 99285-25; A9270; G0378; J0696; J1650; J7030

== ENCOUNTER 2020-09-21 16:59 | Emergency (ER) | payer OTHER ==
[~2020-09-21] VITALS: Ht 185.4 cm; Wt 167.8 kg
[~2020-09-21 16:59] MED LIST changes: +SYMBICORT 80-10.2 GM
[2020-09-21 17:41] LABS: BASOPHILS ABSOLUTE AUTO 0.08 K/mm3 (0.00-0.23); BASOPHILS PERCENT AUTO 1 % (0-2); EOSINOPHILS ABSOLUTE AUTO 0.88 K/mm3 (0.00-0.68); EOSINOPHILS PERCENT AUTO 8 % (0-6); Hematocrit 40.2 % (37.0-53.0); Hemoglobin 12.6 g/dL (13.5-17.5); IMMATURE GRAN ABSOLUTE AUTO 0.27 K/mm3 (0.00-0.10); IMMATURE GRAN PERCENT AUTO 2 % (0-1); LYMPHOCYTES ABSOLUTE AUTO 2.93 K/mm3 (0.84-5.20); LYMPHOCYTES PERCENT AUTO 25 % (21-46); MONOCYTES ABSOLUTE AUTO 0.56 K/mm3 (0.16-1.47); MONOCYTES PERCENT AUTO 5 % (4-13); Mean Corpuscular HGB 27.1 pg (26.0-34.0); Mean Corpuscular HGB Conc 31.3 g/dL (31.5-36.5); Mean Corpuscular Volume 87 fL (80-100); Mean Platelet Volume 9.5 fL (9.1-12.4); NEUTROPHILS ABSOLUTE AUTO 6.89 K/mm3 (1.96-9.15); NEUTROPHILS PERCENT AUTO 59 % (41-73); Platelet Count 274 K/mm3 (150-400); RDW Coefficient Variation 14.1 % (11.7-14.2); RDW Standard Deviation 44.3 fL (35.1-46.3); Red Blood Cell Count 4.65 M/mm3 (4.30-5.90); White Blood Cell Count 11.61 K/mm3 (4.00-11.30)
[2020-09-21 18:05] LABS: Alanine Aminotransfer (ALT/SGP 31 U/L (12-78); Albumin, Blood 3.4 g/dL (3.4-5.0); Albumin/Globulin Ratio 0.8 (0.8-1.8); Alk Phos 74 U/L (50-136); Anion Gap 4 mmol/L (6-16); Aspartate Aminotrans (AST/SGOT 19 U/L (12-37); Bilirubin, Total 0.2 mg/dL (0.1-1.0); Blood Urea Nitrogen 19 mg/dL (8-24); Bun/Creatinine Ratio 27.2 (12.0-20.0); CO2, Blood 35 mmol/L (21-32); Calcium, Blood 9.4 mg/dL (8.5-10.1); Chloride, Blood 99 mmol/L (98-108); Globulin, Blood 4.4 g/dL (2.2-4.0); Glomerular Filtration Rate >60 (60-); Glucose, Blood 122 mg/dL (70-99); Potassium, Blood 3.6 mmol/L (3.5-5.5); Sodium, Blood 138 mmol/L (136-145); Total Protein, Blood 7.8 g/dL (6.4-8.2)
[2020-09-21 19:45] LABS: Source, Urine Clean Catch
[2020-09-21 19:48] LABS: Appearance, Urine Clear (Clear); Bilirubin, Urine Neg (Neg); Blood, Urine Neg (Neg); Color, Urine Yellow (P-Yellow); Glucose Qualitative, Urine Neg (Neg); Ketones, Urine Neg (Neg); Leukocyte Esterase, Urine 2+ (Neg); Nitrite, Urine Neg (Neg); Protein, Urine Neg (Neg); Specific Gravity, Urine 1.005 (1.003-1.022); Urobilinogen, Urine 2+ (Normal)
[2020-09-21 19:58] LABS: Red Blood Cells, Urine 0-2 /hpf (0-2); Squamous Epithelial Cells Few /hpf (Few)
[2020-09-21 19:59] LABS: Bacteria Mod /hpf
[2020-09-21] MEDS ORDERED: CEPH500 PO (21:41)
[2020-09-21] MEDS ORDERED: CLOTRIMAZOLE 321 GM TOP (21:41)
== END 2020-09-21 23:30 | disposition home or self-care (01) ==
LOC: ER 16:59
PROVIDERS: Emergency Medicine; Physician Assistant
DX: N48.1 Balanitis (principal); E11.42 Type 2 diabetes mellitus with diabetic polyneuropathy; E66.01 Morbid (severe) obesity due to excess calories; J44.9 Chronic obstructive pulmonary disease, unspecified; G40.909 Epilepsy, unspecified, not intractable, without status epilepticus; Z79.4 Long term (current) use of insulin; Z79.899 Other long term (current) drug therapy; Z88.8 Allergy status to other drugs, medicaments and biological substances; Z87.891 Personal history of nicotine dependence; Z68.42 Body mass index [BMI] 45.0-49.9, adult
CPT/HCPCS: 80053; 81001; 83605; 85025; 85651; 86140; 87086; 87147; 96360; 99283-25; A9270; J7030

== ENCOUNTER 2020-10-22 13:33 | Inpatient (IN) | payer OTHER ==
[~2020-10-22] VITALS: Ht 185.4 cm; Wt 154.0 kg
[~2020-10-22 13:33] MED LIST changes: +CEPH500 PO; +CLOTRIMAZOLE 321 GM TOP
[2020-10-22 14:16] LABS: BASOPHILS ABSOLUTE AUTO 0.05 K/mm3 (0.00-0.23); BASOPHILS PERCENT AUTO 0 % (0-2); EOSINOPHILS ABSOLUTE AUTO 0.02 K/mm3 (0.00-0.68); EOSINOPHILS PERCENT AUTO 0 % (0-6); Hemoglobin 10.7 g/dL (13.5-17.5); IMMATURE GRAN PERCENT AUTO 3 % (0-1); LYMPHOCYTES ABSOLUTE AUTO 1.63 K/mm3 (0.84-5.20); LYMPHOCYTES PERCENT AUTO 10 % (21-46); MONOCYTES ABSOLUTE AUTO 0.56 K/mm3 (0.16-1.47); MONOCYTES PERCENT AUTO 3 % (4-13); Mean Corpuscular HGB 26.9 pg (26.0-34.0); Mean Corpuscular HGB Conc 31.5 g/dL (31.5-36.5); Mean Corpuscular Volume 85 fL (80-100); Mean Platelet Volume 9.4 fL (9.1-12.4); NEUTROPHILS ABSOLUTE AUTO 14.19 K/mm3 (1.96-9.15); NEUTROPHILS PERCENT AUTO 84 % (41-73); Platelet Count 249 K/mm3 (150-400); RDW Coefficient Variation 15.2 % (11.7-14.2); RDW Standard Deviation 47.5 fL (35.1-46.3); Red Blood Cell Count 3.98 M/mm3 (4.30-5.90); White Blood Cell Count 16.95 K/mm3 (4.00-11.30)
[2020-10-22 14:36] LABS: Alanine Aminotransfer (ALT/SGP 28 U/L (12-78); Albumin/Globulin Ratio 0.8 (0.8-1.8); Alk Phos 59 U/L (50-136); Anion Gap 6 mmol/L (6-16); Aspartate Aminotrans (AST/SGOT 16 U/L (12-37); Bilirubin, Total 0.4 mg/dL (0.1-1.0); Blood Urea Nitrogen 21 mg/dL (8-24); Bun/Creatinine Ratio 24.5 (12.0-20.0); CO2, Blood 28 mmol/L (21-32); Calcium, Blood 8.7 mg/dL (8.5-10.1); Chloride, Blood 99 mmol/L (98-108); Creatinine, Blood 0.86 mg/dL (0.60-1.20); Glomerular Filtration Rate >60 (60-); Glucose, Blood 107 mg/dL (70-99); Potassium, Blood 3.1 mmol/L (3.5-5.5); Sodium, Blood 133 mmol/L (136-145)
[2020-10-22] MEDS ORDERED: ALBU90OI INH (15:21)
[2020-10-22] MEDS ORDERED: SYMBICORT 80-10.2 GM INH (15:22)
[2020-10-22] MEDS ORDERED: CHLO25B PO (15:23)
[2020-10-22] MEDS ORDERED: DULO30 PO (15:24)
[2020-10-22] MEDS ORDERED: Cymbalta30 MG PO (15:24)
[2020-10-22] MEDS ORDERED: Norco 10-325 T1 EACH PO (15:25)
[2020-10-22] MEDS ORDERED: BASAGLAR K100 UNIT/1 SC ×2 (15:26)
[2020-10-22] MEDS ORDERED: LEVE500 PO (15:27)
[2020-10-22] MEDS ORDERED: Prinivil10 MG PO (15:27)
[2020-10-22] MEDS ORDERED: METO25 PO (15:28)
[2020-10-22] MEDS ORDERED: Lyrica225 MG PO (15:28)
[2020-10-22] MEDS ORDERED: GLUCOPHAGE1000 M1 PO (15:28)
[2020-10-22] MEDS ORDERED: OZEMPIC1 MG/0.72 SC (15:30)
[2020-10-22] MEDS ORDERED: DOCU100 PO (15:30)
[2020-10-22] MEDS ORDERED: NOVOLOG FL100 UNIT/3 SC (15:31)
[2020-10-22] MEDS ORDERED: MIRALAX17 GM PO (15:49)
[2020-10-22] MEDS ORDERED: MULVITA PO (15:50)
[2020-10-22] MEDS ORDERED: FISH OIL 1,2001 EAC7 PO (15:50)
[2020-10-22] MEDS ORDERED: EXTRA PAIN REL1 EAC2 PO (15:51)
--- NOTE | 2020-10-22 20:15 | NUR ---
REPORT RECEIVED FROM GABO SIMENTAL RN AT 1707 VIA PHONE; PT ARRIVED VIA STRETCHER ACCOMPANIED BY RN WITH MONITORING AND OXYGEN THERAPY AT 1750; TELEMETRY APPLIED TO PT; IV INFUSION INITIATED; RX ADMINISTERED PER MAR; PT ASSESSED; WATER AND MEAL SERVED TO PT; PT'S PARENTS UPDATED ON PLAN OF CARE AT THE BEDSIDE, AND PT GIVEN ANALGESIC FOR BILATERAL HIP PAIN. PT REPORTS NO ADDITIONAL CONCERNS AT THIS TIME.
[2020-10-23 05:07] LABS: Alanine Aminotransfer (ALT/SGP 33 U/L (12-78); Albumin, Blood 3.2 g/dL (3.4-5.0); Albumin/Globulin Ratio 0.8 (0.8-1.8); Alk Phos 71 U/L (50-136); Anion Gap 4 mmol/L (6-16); Aspartate Aminotrans (AST/SGOT 25 U/L (12-37); Bilirubin, Total 0.2 mg/dL (0.1-1.0); Blood Urea Nitrogen 15 mg/dL (8-24); Bun/Creatinine Ratio 20.6 (12.0-20.0); CO2, Blood 31 mmol/L (21-32); Calcium, Blood 9.1 mg/dL (8.5-10.1); Chloride, Blood 102 mmol/L (98-108); Creatinine, Blood 0.73 mg/dL (0.60-1.20); Globulin, Blood 4.2 g/dL (2.2-4.0); Glomerular Filtration Rate >60 (60-); Glucose, Blood 128 mg/dL (70-99); Magnesium, Blood 1.9 mg/dL (1.6-2.4); Potassium, Blood 3.4 mmol/L (3.5-5.5); Sodium, Blood 137 mmol/L (136-145); Total Protein, Blood 7.4 g/dL (6.4-8.2)
[2020-10-23 05:36] LABS: BASOPHILS ABSOLUTE AUTO 0.04 K/mm3 (0.00-0.23); BASOPHILS PERCENT AUTO 0 % (0-2); EOSINOPHILS ABSOLUTE AUTO 0.04 K/mm3 (0.00-0.68); EOSINOPHILS PERCENT AUTO 0 % (0-6); Hematocrit 36.3 % (37.0-53.0); Hemoglobin 11.3 g/dL (13.5-17.5); IMMATURE GRAN PERCENT AUTO 3 % (0-1); LYMPHOCYTES ABSOLUTE AUTO 1.61 K/mm3 (0.84-5.20); LYMPHOCYTES PERCENT AUTO 15 % (21-46); MONOCYTES ABSOLUTE AUTO 0.38 K/mm3 (0.16-1.47); MONOCYTES PERCENT AUTO 3 % (4-13); Mean Corpuscular HGB Conc 31.1 g/dL (31.5-36.5); Mean Corpuscular Volume 87 fL (80-100); Mean Platelet Volume 9.9 fL (9.1-12.4); NEUTROPHILS ABSOLUTE AUTO 8.66 K/mm3 (1.96-9.15); NEUTROPHILS PERCENT AUTO 79 % (41-73); Platelet Count 219 K/mm3 (150-400); RDW Coefficient Variation 15.1 % (11.7-14.2); RDW Standard Deviation 47.9 fL (35.1-46.3); Red Blood Cell Count 4.18 M/mm3 (4.30-5.90); White Blood Cell Count 11.03 K/mm3 (4.00-11.30)
--- NOTE | 2020-10-23 06:29 | NUR ---
shift summary pt rested well through night. alert and oriented, able to make needs known. cooperative with care. sats >90% on 1lnc. tele - nsr. no bm. adequate voiding in urinal - >1000ml. iv abx running with iv maint fluids. pain x1 - see emar. cellulitis does not appear to be passing lined margins. vss. call light wtihin reach, bed in lowest position. will continue to monitor.
--- NOTE | 2020-10-23 08:02 | NUR ---
pt sitting up on the bed, states his pain is 7/10 on his hip/buttocks area and shoulders are painful, a/ox3, pleasant and cooperative with care, follows commands well, lungs are clear in upper stout, dim in bases, resp even and unlabored, is on 1 liter 02 via n/c, states he only uses at hs, will remove, doesn't know if he has karina, but states he is suppose to use a cpap but can't tolerate, no cough noted, hrr, tele in place running sr with pvc's per monitor, see strip, trace edema noted to b/l le, but he is a big man, and may be body habitus, ppp+1, cap refill <3sec, vs stable, afebrile, iv site to right hand site is clear and patent, infusing ns as ordered, btx4, abd large soft nontender, voids via urinal, skin has red area to left buttocks, is outlined, he reports it was purple yesterday, is red today, no open area, cam rose, call light in reach.
--- NOTE | 2020-10-23 14:31 | NUR ---
pt is able to move around the room ad bright, ambulates indep, complaining of pain, pain medication administered, has been changed to medical status. call light in reach.
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
--- NOTE | 2020-10-23 17:53 | NUR ---
Met with pt for initial Palliative visit r/t advanced care planning. Attempted to strike up conversation with pt; but he was focused on the television. He did tell me he lives with his parents, that they are very able bodied for "their ages", and that they are the ones who insisted he come to the hospital. He tells me his L "thigh and butt" are sore. Note circled area with redness on lower back. He states pain is "ok", then layed back and refocused on the television. I said goodbye and exited.
--- NOTE | 2020-10-23 19:15 | NUR ---
SHIFT SUMMARY: PATIENT XFR FROM PCU-01 THIS SHIFT. PT A&O; INDEPENDENT IN ROOM; CALM AND COOEPRATIVE WITH CARE. NO C/O PAIN SINCE ARRIVAL ON MEDICAL. L HIP/BUTTOCK RED R/T CELLULITIS; IV ABX Q6 CONTINUING. REPORT GIVEN TO ONCOMING RN.
--- NOTE | 2020-10-23 23:47 | NUR ---
PROVIDED PT O2 TUBING FOR PRESCRIBED 3LO2 @ BEDTIME AND O2 SET TO 3L. NO OTHER NEEDS AT THIS TIME. WILL CONTINUE TO MONITOR.
--- NOTE | 2020-10-24 04:20 | NUR ---
GAMING CAGE WORKER SUMMARY. PT ADMITTED FOR CELLULITIS OF L BUTTOCK. FULL CODE. PLAN IS CONTINUING IV ABX. IV ABX SCHEDULED Q6. MEDICATED FOR PAIN 1 TIME THIS SHIFT. 3LO2 IS BASELINE USE WHILE SLEEPING. PT HAS PREVIOUS DX OF ESPERANZA BUT IS NONCOMPLIANT WITH CPAP. LONG ACTING INSULIN ADMINISTERED PER EMAR. NO NEW CONCERNS THIS SHIFT. WILL CONTINUE TO MONITOR.
--- NOTE | 2020-10-24 05:06 | NUR ---
CTA/AUTO RADIATOR SPECIALIST I HAVE ASSESSED THIS PT. I HAVE READ THE AUTO RADIATOR SPECIALIST NOTES AND I AGREE. SHIFT SUMMARY IN STUDENT NURSING NOTES.
[2020-10-24 05:17] LABS: BASOPHILS ABSOLUTE AUTO 0.05 K/mm3 (0.00-0.23); BASOPHILS PERCENT AUTO 1 % (0-2); EOSINOPHILS ABSOLUTE AUTO 0.43 K/mm3 (0.00-0.68); EOSINOPHILS PERCENT AUTO 4 % (0-6); Hematocrit 36.6 % (37.0-53.0); Hemoglobin 11.2 g/dL (13.5-17.5); IMMATURE GRAN ABSOLUTE AUTO 0.31 K/mm3 (0.00-0.10); IMMATURE GRAN PERCENT AUTO 3 % (0-1); LYMPHOCYTES ABSOLUTE AUTO 1.82 K/mm3 (0.84-5.20); LYMPHOCYTES PERCENT AUTO 19 % (21-46); MONOCYTES PERCENT AUTO 5 % (4-13); Mean Corpuscular HGB 26.4 pg (26.0-34.0); Mean Corpuscular HGB Conc 30.6 g/dL (31.5-36.5); Mean Corpuscular Volume 86 fL (80-100); Mean Platelet Volume 9.7 fL (9.1-12.4); NEUTROPHILS ABSOLUTE AUTO 6.73 K/mm3 (1.96-9.15); NEUTROPHILS PERCENT AUTO 68 % (41-73); Platelet Count 222 K/mm3 (150-400); RDW Coefficient Variation 14.8 % (11.7-14.2); RDW Standard Deviation 47.3 fL (35.1-46.3); Red Blood Cell Count 4.24 M/mm3 (4.30-5.90); White Blood Cell Count 9.84 K/mm3 (4.00-11.30)
[2020-10-24 05:37] LABS: Alanine Aminotransfer (ALT/SGP 41 U/L (12-78); Albumin, Blood 3.1 g/dL (3.4-5.0); Albumin/Globulin Ratio 0.7 (0.8-1.8); Alk Phos 86 U/L (50-136); Anion Gap 4 mmol/L (6-16); Aspartate Aminotrans (AST/SGOT 35 U/L (12-37); Bilirubin, Total 0.2 mg/dL (0.1-1.0); Blood Urea Nitrogen 14 mg/dL (8-24); Bun/Creatinine Ratio 18.7 (12.0-20.0); CO2, Blood 32 mmol/L (21-32); Calcium, Blood 8.6 mg/dL (8.5-10.1); Chloride, Blood 100 mmol/L (98-108); Creatinine, Blood 0.75 mg/dL (0.60-1.20); Globulin, Blood 4.3 g/dL (2.2-4.0); Glomerular Filtration Rate >60 (60-); Glucose, Blood 89 mg/dL (70-99); Potassium, Blood 3.6 mmol/L (3.5-5.5); Sodium, Blood 136 mmol/L (136-145); Total Protein, Blood 7.4 g/dL (6.4-8.2)
--- NOTE | 2020-10-24 19:46 | NUR ---
SHIFT SUMMARY: NO ACUTE CHANGES TO REPORT THIS SHIFT. PT A&O; CALM & COOPERATIVE WITH CARE; INDEPENDENT IN ROOM. MEDICATED FOR L BUTTOCK/HIP PAIN PER EMAR. IV ABX CONTINUING; EXPECTED D/C HOME 10/25. REPORT GIVEN TO ONCOMING RN.
--- NOTE | 2020-10-24 22:45 | NUR ---
PT GAVE THIS [facility] NURSE PERMISSION TO PROVIDE CARE ON 10/24/20
--- NOTE | 2020-10-25 06:31 | NUR ---
SHIFT SUMMARY NO ACUTE CHANGES THIS SHIFT, MEDICATED 1X FOR PAIN, NO OTHER C/O ANY KIND, SLEPT INTERMIT THIS SHIFT, DANGLING AT BEDSIDE AT THIS TIME, CALL LIGHT IN REACH, WILL CONT TO MONITOR UNTIL REPORT GIVNE TO DAY RN.
[2020-10-25] MEDS ORDERED: Acetaminophen325 M1 PO (10:51)
[2020-10-25] MEDS ORDERED: VISBIOME 112.51 EACH PO (10:52)
[2020-10-25] MEDS ORDERED: CEPH500 PO (10:52)
[2020-10-25] MEDS ORDERED: NYSTATIN100000 UN1 MT (10:53)
--- NOTE | 2020-10-25 13:26 | NUR ---
PT AAOX4. APPROPRIATE WITH CARE. INDEPENDENT IN ROOM. PAIN AT TOLERABLE LEVEL UP TO DISCHARGE. CELLULITIS IS RECEDING FROM INITIAL MAPPING. PT DISCHARGED TO HOME WITH PARENTS. DISCHARGE MEDICATIONS AND INSTUCTIONS REVIEWED. PT ABLE TO VERBALIZE THAT HE IS TO METAL NEUTRALIZER [facility] AT [facility] WITH VOUCHER. CLIENT IS ABLE TO VERBALIZE WORSENING SYMPTOMS AND WHEN TO SEEK HELP. HE HAS NO QUESTIONS OR CONCERNS AT DC
== END 2020-10-25 12:52 | disposition home or self-care (01) | DRG 872 ==
LOC: ER 13:33 → PCU 17:12 → MEDS 10-23 16:03
PROVIDERS: Emergency Medicine; Nurse Practitioner Acute Care; ADMIT Internal Medicine
DX: A41.9 Sepsis, unspecified organism (principal); L03.317 Cellulitis of buttock; Z68.42 Body mass index [BMI] 45.0-49.9, adult; E87.1 Hypo-osmolality and hyponatremia; J98.11 Atelectasis; R65.20 Severe sepsis without septic shock; R09.02 Hypoxemia; I95.9 Hypotension, unspecified; E66.01 Morbid (severe) obesity due to excess calories; I10 Essential (primary) hypertension; E11.42 Type 2 diabetes mellitus with diabetic polyneuropathy; M54.9 Dorsalgia, unspecified; G89.29 Other chronic pain; G47.30 Sleep apnea, unspecified; J44.9 Chronic obstructive pulmonary disease, unspecified; Z99.81 Dependence on supplemental oxygen; Z98.890 Other specified postprocedural states; Z79.4 Long term (current) use of insulin; Z79.899 Other long term (current) drug therapy; Z88.1 Allergy status to other antibiotic agents; Z88.8 Allergy status to other drugs, medicaments and biological substances
CPT/HCPCS: 36415; 71045; 72193; 80053; 80177; 82947; 83605; 83735; 84145; 85025; 87040; 93005; 93010; 94640; 94760; 96365-59; 97110; 97162; 97165; 97535; 99285-25; A9270; J0690; J1650; J1885; J3370; J7030; J7050; Q9967

== ENCOUNTER 2020-11-23 14:28 | Emergency (ER) | payer OTHER ==
[~2020-11-23] VITALS: Ht 185.4 cm; Wt 167.8 kg
[~2020-11-23 14:28] MED LIST changes: +ALBU90OI INH; +Acetaminophen325 M1 PO; +Cymbalta30 MG PO; +DULO30 PO; +EXTRA PAIN REL1 EAC2 PO; +FISH OIL 1,2001 EAC7 PO; +GLUCOPHAGE1000 M1 PO; +LEVE500 PO; +Lyrica225 MG PO; +METO25 PO; +MIRALAX17 GM PO; +MULVITA PO; +NOVOLOG FL100 UNIT/3 SC; +NYSTATIN100000 UN1 MT; +Norco 10-325 T1 EACH PO; +OZEMPIC1 MG/0.72 SC; +Prinivil10 MG PO; +SYMBICORT 80-10.2 GM INH; +VISBIOME 112.51 EACH PO
== END 2020-11-23 17:21 | disposition home or self-care (01) ==
LOC: ER 14:28
DX: T78.3XXA Angioneurotic edema, initial encounter (principal); T46.4X5A Adverse effect of angiotensin-converting-enzyme inhibitors, initial encounter; E11.9 Type 2 diabetes mellitus without complications; I10 Essential (primary) hypertension; J44.9 Chronic obstructive pulmonary disease, unspecified; Z88.8 Allergy status to other drugs, medicaments and biological substances; Z79.4 Long term (current) use of insulin; Z79.899 Other long term (current) drug therapy; Z79.82 Long term (current) use of aspirin; Z87.891 Personal history of nicotine dependence
CPT/HCPCS: 36415; 96374; 96375; 99283-25; J1200; J2930

== ENCOUNTER 2021-05-17 11:40 | Emergency (ER) | payer OTHER ==
[~2021-05-17] VITALS: Ht 185.4 cm; Wt 165.1 kg
[2021-05-17 12:29] LABS: BASOPHILS ABSOLUTE AUTO 0.06 K/mm3 (0.00-0.23); BASOPHILS PERCENT AUTO 1 % (0-2); EOSINOPHILS ABSOLUTE AUTO 0.38 K/mm3 (0.00-0.68); EOSINOPHILS PERCENT AUTO 4 % (0-6); Hemoglobin 11.9 g/dL (13.5-17.5); IMMATURE GRAN ABSOLUTE AUTO 0.34 K/mm3 (0.00-0.10); IMMATURE GRAN PERCENT AUTO 4 % (0-1); LYMPHOCYTES ABSOLUTE AUTO 2.14 K/mm3 (0.84-5.20); LYMPHOCYTES PERCENT AUTO 22 % (21-46); MONOCYTES ABSOLUTE AUTO 0.54 K/mm3 (0.16-1.47); MONOCYTES PERCENT AUTO 6 % (4-13); Mean Corpuscular HGB Conc 30.5 g/dL (31.5-36.5); Mean Corpuscular Volume 85 fL (80-100); Mean Platelet Volume 9.6 fL (9.1-12.4); NEUTROPHILS ABSOLUTE AUTO 6.27 K/mm3 (1.96-9.15); NEUTROPHILS PERCENT AUTO 65 % (41-73); Platelet Count 250 K/mm3 (150-400); RDW Coefficient Variation 14.8 % (11.7-14.2); RDW Standard Deviation 44.9 fL (35.1-46.3); Red Blood Cell Count 4.58 M/mm3 (4.30-5.90); White Blood Cell Count 9.73 K/mm3 (4.00-11.30)
[2021-05-17 12:52] LABS: Alanine Aminotransfer (ALT/SGP 33 U/L (12-78); Albumin, Blood 3.4 g/dL (3.4-5.0); Albumin/Globulin Ratio 0.8 (0.8-1.8); Alk Phos 68 U/L (50-136); Anion Gap 8 mmol/L (6-16); Aspartate Aminotrans (AST/SGOT 22 U/L (12-37); Bilirubin, Total 0.2 mg/dL (0.1-1.0); Blood Urea Nitrogen 12 mg/dL (8-24); Bun/Creatinine Ratio 23.2 (12.0-20.0); CO2, Blood 29 mmol/L (21-32); Calcium, Blood 9.1 mg/dL (8.5-10.1); Chloride, Blood 100 mmol/L (98-108); Creatinine, Blood 0.52 mg/dL (0.60-1.20); Globulin, Blood 4.1 g/dL (2.2-4.0); Glomerular Filtration Rate >60 (60-); Glucose, Blood 257 mg/dL (70-99); Potassium, Blood 3.4 mmol/L (3.5-5.5); Sodium, Blood 137 mmol/L (136-145); Total Protein, Blood 7.5 g/dL (6.4-8.2); Troponin I <0.015 ng/mL (0.000-0.040)
[2021-05-17 13:27] LABS: Influenza A, PCR NEGATIVE (NEGATIVE); Influenza B, PCR NEGATIVE (NEGATIVE); Resp Syncytial Virus, PCR NEGATIVE (NEGATIVE); SARS-Cov-2 (COVID-19) PCR, MMC NEGATIVE (NEGATIVE)
[2021-05-17] MEDS ORDERED: LEVO750 PO (13:46)
== END 2021-05-17 14:02 | disposition home or self-care (01) ==
LOC: ER 11:40
PROVIDERS: Physician Assistant
DX: J18.9 Pneumonia, unspecified organism (principal); Z20.822 Contact with and (suspected) exposure to COVID-19; I10 Essential (primary) hypertension; E11.9 Type 2 diabetes mellitus without complications; G40.909 Epilepsy, unspecified, not intractable, without status epilepticus; J44.9 Chronic obstructive pulmonary disease, unspecified; Z88.1 Allergy status to other antibiotic agents; Z88.8 Allergy status to other drugs, medicaments and biological substances; Z79.84 Long term (current) use of oral hypoglycemic drugs; Z79.4 Long term (current) use of insulin; Z79.82 Long term (current) use of aspirin; Z79.899 Other long term (current) drug therapy; Z87.891 Personal history of nicotine dependence
CPT/HCPCS: 0241U; 36415; 71045; 80053; 84484; 85025; 93005; 93010; 99285-25; A9270